=== PATIENT | female | born 1965 | race Caucasian/White ===

== ENCOUNTER 2017-04-15 11:18 | Inpatient (IN) | payer MEDICAID ==
[~2017-04-15] VITALS: Ht 172.7 cm; Wt 69.9 kg
[2017-04-15] MEDS ORDERED: FAMOTIDINE 20MG/2ML VIAL IV STA (11:33)
[2017-04-15] MEDS ORDERED: SODIUM CHLORIDE 0.9% 1,000 ML IV ONE (11:33)
[2017-04-15] MEDS ORDERED: ONDANSETRON HCL 4MG/2ML VIAL IV STA (11:33)
[2017-04-15] MEDS ORDERED: MORPHINE SULFATE 4 MG/ML CPJ (NOT FOR IM USE) IV STA (11:33)
[2017-04-15 12:13] LABS: BASOPHILS % 0.4 % (0.0-2.0); EOSINOPHILS % 1.6 % (0.0-5.0); HEMATOCRIT. 37.7 % (36.0-48.0); HEMOGLOBIN. 12.9 g/dL (12.0-16.0); MEAN CORPUSCULAR HEMOGLOBIN 31.8 pg (28.0-32.0); MEAN CORPUSCULAR VOLUME 93.1 fL (81.0-99.0); MEAN PLATELET VOLUME 8.1 fl (7.4-10.4); MONOCYTES % 5.3 % (2.0-8.0); NEUTROPHILS % 81.7 % (40.0-76.0); PLATELET 225 x1000/uL (130-400); RED BLOOD CELL COUNT 4.05 mill/uL (4.2-5.4); RED CELL DISTRIBUTION WIDTH 13.6 % (11.6-14.6)
[2017-04-15 12:29] LABS: CARBON DIOXIDE 29 mEq/L (21-32); CHLORIDE 107 mEq/L (98-107); TROPONIN I < 0.02 ng/mL (0.00-0.04)
[2017-04-15 12:38] LABS: INR 1.1; PARTIAL THROMBOPLASTIN TIME 24.5 sec (23.4-31.0); PROTHROMBIN TIME 11.3 sec (9.4-11.6)
[2017-04-15 13:37] LABS: CLARITY URINE CLEAR (CLEAR); COLOR URINE DARK YELLOW (YELLOW); GLUCOSE URINE NEGATIVE (NEGATIVE); KETONES URINE NEGATIVE (NEGATIVE); LEUKOCYTE ESTERASE URINE TRACE (NEGATIVE); NITRITE URINE NEGATIVE (NEGATIVE); OCCULT BLOOD URINE TRACE (NEGATIVE); PROTEIN URINE NEGATIVE (NEGATIVE); SPECIFIC GRAVITY URINE 1.018 (1.005-1.030)
[2017-04-15 14:08] LABS: AMYLASE 5056 IU/L (25-115)
[2017-04-15] MEDS ORDERED: CEFTRIAXONE 1 G PREMIX 50 ML IV ONE (14:45)
[2017-04-15] MEDS ORDERED: PIPERACILLIN/TAZ 3.375G PREMIX 50 ML IV ONE (15:45)
[2017-04-15 16:00] VITALS: BP 135/76
[2017-04-15] MEDS ORDERED: LORAZEPAM 2MG/ML CPJ IV PRN (16:15)
[2017-04-15] MEDS ORDERED: MORPHINE SULFATE 2 MG/ML CPJ (NOT FOR IM USE) IV PRN (16:15)
[2017-04-15] MEDS ORDERED: LEVO125T8 (17:48)
[2017-04-15] MEDS ORDERED: FLUO40CA49 (17:48)
[2017-04-15] MEDS: SODIUM CHLORIDE 0.9% 1,000 ML IV SCH (18:20)
[2017-04-15] MEDS: ENOXAPARIN 40MG/0.4ML SYR SUBCUT SCH (18:20)
[2017-04-15 20:00] VITALS: BP 129/68
[2017-04-16] VITALS: BP 126/71
[2017-04-16 04:00] VITALS: BP 142/71
[2017-04-16] MEDS: SODIUM CHLORIDE 0.9% 1,000 ML IV SCH ×4 (04:16→17:36)
[2017-04-16] MEDS: HYDROCODONE/ACETAMINOPHEN 5/325MG TABLET PO PRN ×3 (04:17→18:07)
[2017-04-16 08:00] VITALS: BP 109/49
[2017-04-16] MEDS: THIAMINE HCL 100MG TABLET PO SCH (09:14)
[2017-04-16] MEDS: ONDANSETRON HCL 4MG/2ML VIAL IV PRN ×2 (09:14→18:07)
[2017-04-16 12:00] VITALS: BP 149/86
[2017-04-16 12:39] LABS: HEPATITIS B SURFACE ANTIGEN NEGATIVE
[2017-04-16 13:07] LABS: HEPATITIS B CORE AB IGM NEGATIVE
[2017-04-16 13:08] LABS: HEPATITIS A AB IGM NEGATIVE (NEGATIVE)
[2017-04-16 14:03] LABS: *AMPHETAMINES SCREEN URINE NEGATIVE (NEGATIVE); *BARBITURATES SCREEN URINE NEGATIVE (NEGATIVE); *BENZODIAZEPINES SCREEN URINE NEGATIVE (NEGATIVE); *COCAINE SCREEN URINE NEGATIVE (NEGATIVE); CANNABINOID URINE SCREEN NEGATIVE (NEGATIVE); METHADONE URINE SCREEN NEGATIVE (NEGATIVE); OPIATES URINE SCREEN PRESUMTIVE POSITIVE (NEGATIVE); PHENCYCLIDINE URINE SCREEN NEGATIVE (NEGATIVE)
[2017-04-16] MEDS: ENOXAPARIN 40MG/0.4ML SYR SUBCUT SCH (15:58)
[2017-04-16 16:00] VITALS: BP 126/69
[2017-04-16 20:00] VITALS: BP 127/63
[2017-04-17] VITALS: BP 122/57
[2017-04-17 04:00] VITALS: BP 147/81
[2017-04-17 06:57] LABS: BASOPHILS % 0.5 % (0.0-2.0); EOSINOPHILS % 4.5 % (0.0-5.0); HEMOGLOBIN. 11.3 g/dL (12.0-16.0); LYMPHOCYTES % 20.4 % (20.0-50.0); MEAN CORPUSCULAR HEMOGLOBIN 32.4 pg (28.0-32.0); MEAN CORPUSCULAR VOLUME 91.6 fL (81.0-99.0); MEAN PLATELET VOLUME 8.3 fl (7.4-10.4); MONOCYTES % 7.1 % (2.0-8.0); NEUTROPHILS % 67.5 % (40.0-76.0); PLATELET 170 x1000/uL (130-400); RED BLOOD CELL COUNT 3.47 mill/uL (4.2-5.4); RED CELL DISTRIBUTION WIDTH 13.2 % (11.6-14.6)
[2017-04-17 07:19] LABS: HEMATOCRIT. 32.8 % (36.0-48.0)
[2017-04-17 07:36] LABS: AMYLASE 199 IU/L (25-115); CARBON DIOXIDE 28 mEq/L (21-32); CHLORIDE 106 mEq/L (98-107); PHOSPHORUS 2.6 mg/dL (2.5-4.9)
[2017-04-17 08:20] VITALS: BP_SYST 109; BP_SYST 110; BP_DIAS 50; BP_DIAS 61
[2017-04-17] MEDS: SODIUM CHLORIDE 0.9% 1,000 ML IV SCH ×2 (08:30→15:44)
[2017-04-17] MEDS: THIAMINE HCL 100MG TABLET PO SCH (08:30)
[2017-04-17] MEDS ORDERED: LEVO125T8 PO (08:37)
[2017-04-17] MEDS: LEVOTHYROXINE SODIUM 125MCG TABLET PO SCH (11:19)
[2017-04-17 12:00] VITALS: BP 140/59
[2017-04-17] MEDS: ENOXAPARIN 40MG/0.4ML SYR SUBCUT SCH (15:43)
[2017-04-17 16:00] VITALS: BP 120/48
[2017-04-17 20:00] VITALS: BP 131/71
[2017-04-18] VITALS: BP 121/64
[2017-04-18 04:00] VITALS: BP 136/78
[2017-04-18] MEDS: SODIUM CHLORIDE 0.9% 1,000 ML IV SCH ×2 (06:22→10:37)
[2017-04-18] MEDS: LEVOTHYROXINE SODIUM 125MCG TABLET PO SCH ×2 (06:24→10:35)
[2017-04-18 07:19] LABS: BASOPHILS % 0.9 % (0.0-2.0); HEMATOCRIT. 30.6 % (36.0-48.0); HEMOGLOBIN. 10.8 g/dL (12.0-16.0); LYMPHOCYTES % 30.8 % (20.0-50.0); MEAN CORPUSCULAR HEMOGLOBIN 32.5 pg (28.0-32.0); MEAN CORPUSCULAR VOLUME 91.9 fL (81.0-99.0); MEAN PLATELET VOLUME 8.4 fl (7.4-10.4); MONOCYTES % 10.7 % (2.0-8.0); NEUTROPHILS % 49.6 % (40.0-76.0); PLATELET 165 x1000/uL (130-400); RED BLOOD CELL COUNT 3.33 mill/uL (4.2-5.4); RED CELL DISTRIBUTION WIDTH 13.3 % (11.6-14.6)
[2017-04-18 07:57] LABS: AMYLASE 82 IU/L (25-115); CARBON DIOXIDE 32 mEq/L (21-32); CHLORIDE 106 mEq/L (98-107); PHOSPHORUS 2.5 mg/dL (2.5-4.9)
[2017-04-18 08:00] VITALS: BP 136/58
[2017-04-18] MEDS: THIAMINE HCL 100MG TABLET PO SCH (10:35)
[2017-04-18 12:00] VITALS: BP 125/68
[2017-04-18 12:25] VITALS: BP 125/68
== END 2017-04-18 16:30 | disposition home or self-care (01) | DRG 282 ==
LOC: ER 13:07 → 6EST 13:51 → EDBEDREQ 13:53 → EDBEDREQSVC 13:53 → ENRESERV 14:43
PROVIDERS: ADMIT Internal Medicine Nephrology; ATTEND Internal Medicine Nephrology
DX: K85.10 Biliary acute pancreatitis without necrosis or infection (principal); E43 Unspecified severe protein-calorie malnutrition; K80.20 Calculus of gallbladder without cholecystitis without obstruction; E03.9 Hypothyroidism, unspecified; D64.9 Anemia, unspecified; R74.0 Nonspecific elevation of levels of transaminase and lactic acid dehydrogenase [LDH]; E87.6 Hypokalemia; Z68.23 Body mass index [BMI] 23.0-23.9, adult
CPT/HCPCS: 36415; 74022; 74181; 76705; 80048; 80053; 80076; 80305; 81001; 82150; 83690; 83735; 84100; 84484; 85025; 85610; 85730; 86705; 86709; 86803; 87086; 87340; 93005; 96361; 96374; 96375; 99291; C1893; J0696; J1650; J2060; J2270; J2405; J3490; J7030